=== PATIENT | female | born 1955 | race Caucasian/White ===

== ENCOUNTER 2019-01-05 20:04 | Emergency (ER) | payer OTHER ==
[2019-01-05 20:13] VITALS: BP 134/65; PULSE 86; TEMP 97.9; BMI 25.4
--- NOTE | 2019-01-05 20:30 | PDOC ---
History of Present Illness - General Chief Complaint: Pain Stated Complaint: RT FOOT PAIN Time Seen by Provider: 01/05/19 20:29 - History of Present Illness Initial Comments: 01/05/19 21:49 The patient is 63 year old female, with no significant PMH, who presents to the emergency department with right foot pain beginning 2 weeks ago that progressively worsened today. The patient states her right foot fell asleep while sitting, when she got up and turned on it. The patient noticed pain began to the right lateral portion of the foot which radiated up the right leg. The patient states she is able to ambulate on foot but notices mild tenderness and pain. The patient denies any numbness or tingling. Denies any trauma or deformities. Allergies: NKDA Past surgical history: Gastric bypass Social history: Former smoker PCP: Yue Wasserman ADULT ROS GENERAL/CONSTITUTIONAL: No fever or chills. No weakness. HEAD, EYES, EARS, NOSE AND THROAT: No change in vision. No ear pain or discharge. No sore throat. CARDIOVASCULAR: No chest pain or shortness of breath. RESPIRATORY: No cough, wheezing, or hemoptysis. GASTROINTESTINAL: No nausea, vomiting, diarrhea or constipation. GENITOURINARY: No dysuria, frequency, or change in urination. MUSCULOSKELETAL: +Right leg pain SKIN: No rash NEUROLOGIC: No headache, vertigo, loss of consciousness, or change in strength/ sensation. ENDOCRINE: No increased thirst. No abnormal weight change. HEMATOLOGIC/LYMPHATIC: No anemia, easy bleeding, or history of blood clots. ALLERGIC/IMMUNOLOGIC: No hives or skin allergy. ADULT EXAM GENERAL: Awake, alert, and fully oriented, in no acute distress HEAD: No signs of trauma EYES: PERRLA, EOMI, sclera anicteric, conjunctiva clear ENT: Auricles normal inspection, hearing grossly normal, nares patent, oropharynx clear without exudates. Moist mucosa NECK: Normal ROM, supple, no lymphadenopathy, JVD, or masses LUNGS: Breath sounds equal, clear to auscultation bilaterally. No wheezes, and no crackles HEART: Regular rate and rhythm, normal S1 and S2, no murmurs, rubs or gallops ABDOMEN: Soft, nontender, normoactive bowel sounds. No guarding, no rebound. No masses EXTREMITIES: +Edema and tenderness of the right base 5th metatarsal. Faint ecchymosis mid dorsum of right foot. No deformity. Neurovascular intact. NEUROLOGICAL: Cranial nerves II through XII grossly intact. Normal speech, normal gait SKIN: Warm, Dry, normal turgor, no rashes or lesions noted. Past History - Past Medical History Allergies/Adverse Reactions: Allergies Allergy/AdvReac Type Severity Reaction Status Date / Time No Known Allergies Allergy Unverified 01/05/19 20:05 Home Medications: Ambulatory Orders NK [No Known Home Medication] 01/05/19 COPD: No Disorders: Yes ([employer]) - Surgical History GI Surgery: Yes (GASTRIC BYPASS) - Suicide/Smoking/Psychosocial Hx Smoking History: Former smoker Have you smoked in the past 12 months: No Information on smoking cessation initiated: No *Physical Exam - Vital Signs Last Vital Signs Temp Pulse Resp BP Pulse Ox 97.9 F 86 16 134/65 98 01/05/19 20:09 01/05/19 20:09 01/05/19 20:09 01/05/19 20:09 01/05/19 20:09 Progress Note - Progress Note Progress Note: Right foot x-ray performed: Preliminary interpretation-possible nondisplaced fracture at the base of the fifth metatarsal. The area of questionable finding on x-ray coincides with area of maximal tenderness on exam. Cast shoe placed on the right foot. Patient states that she has some relief of her pain with placement of the cast shoe. She should continue to wear this and avoid strenuous activity/prolonged walking until patient is seen by orthopedist. Patient does not have an orthopedist that she is been given referral information for Dr. Roland/Dr. Cantu with whom she should follow-up within the next week. *DC/Admit/Observation/Transfer Diagnosis at time of Disposition: Metatarsal fracture Qualifiers: Encounter type: initial encounter Metatarsal bone: fifth Fracture type: closed Fracture alignment: nondisplaced Laterality: right Qualified Code(s): S92.354A - Nondisplaced fracture of fifth metatarsal bone, right foot, initial encounter for closed fracture - Discharge Dispostion Disposition: HOME Condition at time of disposition: Stable - Referrals Referrals: Yue Wasserman [Primary Care Provider] - Mark Roland MD [Staff Physician] - - Patient Instructions Printed Discharge Instructions: Foot Fracture Additional Instructions: Avoid strenuous lower body activity for the next few weeks Cast shoe for ambulation until seen by orthopedist Follow-up with orthopedist (Dr. Roland/Pepe)within the next week Ibuprofen/naproxen/acetaminophen as needed for pain return to ER if pain /swelling worsens - Post Discharge Activity
== END 2019-01-05 22:41 | disposition home or self-care (01) ==
LOC: SUPCPDRO 20:04 → FER 20:04
DX: S92.354A Nondisplaced fracture of fifth metatarsal bone, right foot, initial encounter for closed fracture (principal); X58.XXXA Exposure to other specified factors, initial encounter; Y93.89 Activity, other specified; Y92.89 Other specified places as the place of occurrence of the external cause; Z98.84 Bariatric surgery status; Z87.891 Personal history of nicotine dependence
CPT/HCPCS: 73630-TC-RT-FY; 99282-25